=== PATIENT | male | born 1970 | race African-American/Black ===

== ENCOUNTER 2016-07-11 07:03 | Day surgery (SDC) | payer BC ==
[~2016-07-11] VITALS: Ht 175.3 cm; Wt 106.5 kg
[2016-07-11] VITALS (19 sets, daily range): BP systolic 93–129; BP diastolic 56–81; PULSE 68–84; RESP 9–18; Ht 175.3 cm; Wt 106.5 kg
[2016-07-11] MEDS ORDERED: FENTAnyl 50 MCG/ML VIAL ONE (07:56)
[2016-07-11] MEDS ORDERED: LIDOCAINE 2% (SDV) 5 ML INJ ONE (07:56)
[2016-07-11] MEDS ORDERED: MIDAZOLAM 1 MG/ML 2 ML INJ ONE (07:56)
[2016-07-11] MEDS ORDERED: PROPOFOL 20 ML ONE (07:56)
[2016-07-11] MEDS ORDERED: LACTATED RINGER'S 1,000 ML IV* SCH (08:30)
[2016-07-11] MEDS ORDERED: CEFAZOLIN 2 GM/50 ML (PMX) 50 ML IVPB ONE (08:30)
[2016-07-11] MEDS ORDERED: ATOR20TA38 PO (08:30)
[2016-07-11] MEDS ORDERED: METF500T4 PO (08:30)
[2016-07-11 08:43] LABS: BASOPHIL # 0.1 10^3/ul (0.0-0.1); BASOPHILS % 0.6 % (0.0-2.0); EOSINOPHILS # 0.1 10^3/ul (0.0-0.5); EOSINOPHILS % 0.9 % (0.0-7.0); HEMATOCRIT 43.3 % (42.0-52.0); HEMOGLOBIN 14.2 g/dl (14.0-18.0); LYMPHOCYTES # 2.6 10^3/ul (0.8-2.9); LYMPHOCYTES % 28.5 % (15.0-51.0); MEAN CORPUSCULAR HEMOGLOBIN 28.6 pg (29.0-33.0); MEAN CORPUSCULAR HGB CONC 32.8 g/dl (32.0-37.0); MEAN CORPUSCULAR VOLUME 87.3 fl (82.0-101.0); MEAN PLATELET VOLUME 7.8 fl (7.4-10.4); MONOCYTE # 0.6 10^3/ul (0.3-0.9); MONOCYTES % 6.8 % (0.0-11.0); NEUTROPHIL # 5.8 10^3/ul (1.6-7.5); NEUTROPHILS % 63.2 % (39.0-77.0); PLATELET COUNT 300 10^3/UL (140-440); RED BLOOD COUNT 4.96 10^6/ul (4.70-6.10); RED CELL DISTRIBUTION WIDTH 14.3 % (11.5-14.5); UNCORRECTED WBC 9.2 10^3/ul (4.8-10.8); WHITE BLOOD COUNT 9.2 10^3/ul (4.8-10.8)
[2016-07-11 08:46] LABS: CONDITION 1
--- NOTE | 2016-07-11 08:52 | RADRPT ---
PROCEDURE: Chest Radiograph. CLINICAL INDICATION: Preop. TECHNIQUE: Single frontal chest radiograph. COMPARISON: None available FINDINGS: The heart is magnified. The patient is rotated. There is mild leftward deviation of the trachea wh ich may be related to enlarged thyroid gland.. Evaluation is limited by patient rotation. No infilt rate or effusion is seen. The bones are intact. IMPRESSION: 1. No evidence of acute cardiopulmonary disease. 2. Mild leftward deviation of the trachea suggesting right paratracheal mass or enlarged thyroid gl and. This can be further evaluated with the ultrasound and/or CT chest as clinically indicated. RPTAT: KK .Dave Aguilar MD, MD Date Time Electronically viewed and signed by .Dave Aguilar MD, on 07/11/2016 08:52 .B/
[2016-07-11] MEDS ORDERED: INSULIN ASPART [NOVOLOG] 3 ML PEN SC ONE (09:00)
[2016-07-11] MEDS ORDERED: KETOROLAC 30 MG INJ IV ONE (09:00)
[2016-07-11] MEDS ORDERED: ONDANSETRON 4 MG INJ IV PRN ×2 (09:00→11:30)
[2016-07-11] MEDS ORDERED: SUCCINYLCHOLINE CHLORIDE 100 MG/5 ML SYG IV ONE (09:00)
[2016-07-11] MEDS ORDERED: PROCHLORPERAZINE 10 MG INJ IV PRN (09:00)
[2016-07-11] MEDS ORDERED: hydrALAzine 20 MG INJ IV PRN (09:00)
[2016-07-11] MEDS ORDERED: OXYCODONE/ACETAMINOPHEN (5/325) TAB PO PRN ×2 (09:00)
[2016-07-11] MEDS ORDERED: MEPERIDINE 25 MG INJ IV PRN (09:00)
[2016-07-11] MEDS ORDERED: LABETALOL HCL 20MG INJ IV PRN (09:00)
[2016-07-11] MEDS ORDERED: METOCLOPRAMIDE 10 MG INJ IV PRN (09:00)
[2016-07-11] MEDS ORDERED: FENTAnyl 50 MCG/ML VIAL IV PRN (09:00)
[2016-07-11] MEDS ORDERED: HYDROmorphONE (0.2 MG/ML) 10ML SYG IV PRN ×2 (09:00)
[2016-07-11] MEDS ORDERED: DIPHENHYDRAMINE 50 MG INJ IV PRN (09:00)
[2016-07-11] MEDS ORDERED: CEFAZOLIN 1 GM INJ ONE (09:00)
[2016-07-11 09:05] LABS: INR 0.91; PARTIAL THROMBOPLASTIN TIME 29.3 Sec (25.0-35.0); PROTIME 12.2 Sec (12.2-14.2)
[2016-07-11 09:07] LABS: ALBUMIN 3.7 g/dl (3.3-4.9)
[2016-07-11 09:10] LABS: BILIRUBIN,INDIRECT 0.4 mg/dl (0-1.1); BILIRUBIN,TOTAL 0.4 mg/dl (0.2-1.3)
[2016-07-11 09:11] LABS: ALBUMIN/GLOBULIN RATIO 1.19; TOTAL PROTEIN 6.8 g/dl (6.1-8.1)
[2016-07-11 09:14] LABS: CALCIUM 9.2 mg/dl (8.4-10.2); CREATININE 0.92 mg/dl (0.61-1.24); POTASSIUM 4.2 mmol/L (3.5-5.1)
[2016-07-11] MEDS ORDERED: OCULAR LUBRICANT 3.5 GM OPH OINT ONE (09:19)
--- NOTE | 2016-07-11 09:22 | HPN ---
Date/Time of Note Date/Time of Note DATE: 07/11/16 TIME: 09:21 Interval H&P Admission Note Pt. seen H&P reviewed: No system changes MALAIKA HOLLAND MD Jul 11, 2016 09:22
[2016-07-11] MEDS ORDERED: ONDANSETRON 4 MG INJ ONE (09:48)
[2016-07-11] MEDS ORDERED: BUPIVACAINE 0.25%/EPI (SDV) 30 ML INJ ONE (09:48)
[2016-07-11] MEDS ORDERED: METOCLOPRAMIDE 10 MG INJ ONE (09:48)
[2016-07-11] MEDS ORDERED: LIDOCAINE 1% (STERILE-PAK) 30 ML INJ ONE (09:48)
[2016-07-11] MEDS ORDERED: DEXAMETHASONE 4 MG/ML 1 ML INJ ONE (09:48)
[2016-07-11] MEDS ORDERED: HYDROmorphONE 2 MG/ML SYG ONE (10:05)
[2016-07-11] MEDS ORDERED: LACTATED RINGER'S 1,000 ML IV SCH ×2 (11:02)
[2016-07-11] MEDS ORDERED: HYDROCODONE/APAP (5/325) TAB PO PRN ×2 (11:30)
[2016-07-11] MEDS ORDERED: morphine 2 MG INJ IV PRN (11:30)
--- NOTE | 2016-07-11 13:15 | OPR ---
DATE OF OPERATION: 07/11/2016 SURGEON: Hardeep Christy MD DEPUTY COURT CLERK: None. ANESTHESIA: General and local. ANESTHESIOLOGIST: Dr. Aaron PREOPERATIVE DIAGNOSIS: Large subcutaneous mass, posterior left scalp close to the neck. POSTOPERATIVE DIAGNOSIS: Large subcutaneous mass, posterior left scalp close to the neck. Pending pathology report. PROCEDURE: Excision of the mass, along with an ellipse of skin attached to it, size 6 x 1.5 cm. Specimen was sent for pathologic evaluation. ESTIMATED BLOOD LOSS: 10 mL. INDICATION: The patient presented to the office complaining of the presence of a mass in the left posterior scalp which has been there for years and it gradually has been increasing in size. Recently it has been bothering him more and it has been increasing in size. 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 The patient was counseled as to the risks and benefits of the operation , possible complications including bleeding, infection, possible recurrence of the mass, possible postop chronic pain, and some deformity of the skin over the it. He understood. He wanted the operation to be done and we booked the patient for the operation. PROCEDURE: Patient was brought to the operating room and placed on the operating table in supine position. Anesthesia was induced by the anesthesiologist. Position of the patient was changed to the prone position. Antibiotic was given IV by the anesthesiologist. Prep and drape was done. A time-out was called. The patient was identified. The site of the operation and the procedure were discussed along with him. Then all through the operation a mixture of 30 mL of 0.25% Marcaine with epinephrine, plus 30 mL of 1 % lidocaine was used, a total of 40 mL of this solution was used. First injection was performed with this solution around the tumor and then an ellipse of skin was marked about 6 cm transversely and 1.5 to 2 cm the other direction because the mass was pushing out and there was external skin. An incision was made with a sharp knife, carried down through the subcutaneous tissue. 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 All the septations were opened with electrocautery and eventually down to and paraspinal muscle. The anterior surface of the mass was adherent to the fascia of the muscle. It was excised with electrocautery from the fascia and some part of it was adherent to the muscle as well. It was . Hemostasis was achieved with electrocautery. Eventually the wound was completely , excised and was sent out for pathologic evaluation. There was a little extra skin which was also another rim of skin that was removed from the inferior part of the flap, and then the wound was thoroughly irrigated with normal saline solution and Betadine. The injection with part of the aforementioned anesthetic agent was performed into the fascia of the muscle and around the skin and then closure was started. Before making closure, a Nikki drain, 0.25 %, was placed in the wound and brought out through a separate stab wound lateral to the incision. Then the skin was closed in 1 layer using #2-0 nylon interrupted. Vertical mattress and simple mattress sutures were used. At the end, the Nikki drain was anchored to the skin with 3-0 nylon. Dry dressing was applied. Sponge, needle, and instrument counts were reported to be correct x2. A bulky dressing was applied. The patient tolerated the procedure well. Estimated blood loss was 10 mL. The patient's position was changed to supine position, transferred to the stretcher, extubated and transferred to the recovery room in stable condition. Dictated By: HARDEEP DAVIS/VIVIANE Conf#: [id number] DID#: [id number] [id number]
--- NOTE | 2016-07-11 19:14 | RADRPT ---
Vent Rate: 68 bpm RR Interval: 0 msec IA Interval: 154 msec QRS Duration: 86 msec QT Interval: 416 msec QTC Interval: 442 msec P-R-T [place]: 73 - 80 - 63 degrees Normal sinus rhythm Possible Left atrial enlargement Septal infarct , age undetermined Abnormal ECG Electronically Signed By: Master Guzman [id number]
== END 2016-07-11 13:20 | disposition home or self-care (01) ==
LOC: EDSEX 07:03 → SDS 07:03
DX: D17.0 Benign lipomatous neoplasm of skin and subcutaneous tissue of head, face and neck (principal); E78.5 Hyperlipidemia, unspecified; E11.9 Type 2 diabetes mellitus without complications
CPT/HCPCS: 21012; 71010; 80053; 82962; 85025; 85610; 85730; 88307; 93005; J0330; J0690; J1100; J1170; J1885; J2250; J2405; J2765; J3010; J1815